=== PATIENT | male | born 1995 | race African-American/Black ===

== ENCOUNTER 2018-07-08 00:14 | Emergency (ER) | payer MEDICAID ==
[~2018-07-08] VITALS: Ht 172.7 cm; Wt 61.5 kg
[2018-07-08] MEDS ORDERED: IBUPROFEN 600MG TABLET PO ONE (03:15)
[2018-07-08 03:29] VITALS: BP 130/90
== END 2018-07-08 03:30 | disposition home or self-care (01) ==
LOC: ER 00:14
DX: J06.9 Acute upper respiratory infection, unspecified (principal); F12.90 Cannabis use, unspecified, uncomplicated
CPT/HCPCS: 87804; 99283

== ENCOUNTER 2019-03-16 14:19 | Emergency (ER) | payer MEDICAID ==
[~2019-03-16] VITALS: Ht 167.6 cm; Wt 56.0 kg
[2019-03-16 14:38] VITALS: BP 125/71
[2019-03-16] MEDS ORDERED: IPRATROPIUM BROMIDE (0.02%) 0.5MG/2.5ML NEB HHN STA (15:32)
[2019-03-16] MEDS ORDERED: PREDNISONE 20MG TABLET PO STA (15:32)
[2019-03-16] MEDS ORDERED: ALBUTEROL (0.083%) 2.5MG/3ML NEB HHN STA (15:32)
== END 2019-03-16 16:53 | disposition home or self-care (01) ==
LOC: ER 14:27
DX: J45.909 Unspecified asthma, uncomplicated (principal); J20.9 Acute bronchitis, unspecified; F12.10 Cannabis abuse, uncomplicated
CPT/HCPCS: 71045; 94640; 99283; J7512; J7611; Z7610; 96374; 96375

== ENCOUNTER 2020-03-11 10:36 | Emergency (ER) | payer MEDICAID ==
[~2020-03-11] VITALS: Ht 172.7 cm; Wt 68.0 kg
[2020-03-11 10:42] VITALS: BP 116/63
[2020-03-11] MEDS ORDERED: VISCOUS LIDOCAINE 2% 15 ML UDC MM PRN (11:15)
[2020-03-11] MEDS ORDERED: ACETAMINOPHEN 325MG TABLET PO ONE (11:15)
== END 2020-03-11 11:50 | disposition home or self-care (01) ==
LOC: ER 10:36
DX: J02.9 Acute pharyngitis, unspecified (principal)
CPT/HCPCS: 99283